=== PATIENT | female | born 1990 | race Caucasian/White ===

== ENCOUNTER 2017-08-20 20:17 | Emergency (ER) | payer OTHER ==
[~2017-08-20] VITALS: Ht 180.3 cm; Wt 70.8 kg
[2017-08-20 20:21] VITALS: Ht 180.3 cm; Wt 70.8 kg
[2017-08-20 20:52] VITALS: BP 113/52; PULSE 67; RESP 16
[2017-08-20] MEDS ORDERED: SOD CHLORIDE 0.9% 1,000 ML IV STA (21:40)
[2017-08-20] MEDS ORDERED: morphine 4 MG/ML VIAL IV STA (21:40)
[2017-08-20] MEDS ORDERED: ONDANSETRON 4 MG INJ IV STA (21:40)
[2017-08-20] MEDS ORDERED: FAMOTIDINE 20 MG INJ IV STA (21:40)
[2017-08-20] MEDS ORDERED: KETOROLAC 15 MG INJ IV STA (21:40)
--- NOTE | 2017-08-20 21:40 | ERD ---
ER Documentation Chief Complaint Chief Complaint abdominal pain/blood streak vomit x 2 days HPI This 26-year-old female presents to emergency department with complaint of ABD pain since last night reports distention,pt vomited 2 hours ago reports blood in emesis, diarrhea 2 hours ago with blood in stool , reports dark red blood, pt reports fever, states that she doesn't eat spicy food, pt has hx of ulcer was started on Protonix but stopped medication, has not seen PMD in a while , pt reports that she cant find a position of comfort. ROS All systems reviewed and are negative except as per history of present illness. Medications Home Meds Active Scripts Polyethylene Glycol* (Miralax*) 17 Gm Powd.pack, 17 GM PO DAILY, #7 Prov:KAYLA,FANI 08/21/17 Magnesium Citrate* (Magnesium Citrate*) 296 Ml Solution, 296 ML PO ONCE, #1 BOTTLE Prov:KAYLA,FANI 08/21/17 Allergies Allergies: Coded Allergies: No Known Allergy (Unverified , 08/20/17) PMhx/Soc History of Surgery: No Anesthesia Reaction: No Hx Neurological Disorder: No Hx Respiratory Disorders: No Hx Cardiac Disorders: No Hx Psychiatric Problems: No Hx Miscellaneous Medical Probl: Yes (ovarian cyst) Hx Alcohol Use: No Hx Substance Use: No Hx Tobacco Use: No Physical Exam Vitals Vital Signs Date Time Temp Pulse Resp B/P Pulse Ox O2 Delivery O2 Flow Rate FiO2 08/20/17 20:52 67 16 113/52 100 Room Air 08/20/17 20:21 98.0 94 20 128/62 100 Vitals stable, triage notes reviewed Physical Exam Const: Nourished well-appearing well-hydrated 26-year-old female obvious discomfort no acute distress Head: Eyes: Normal Conjunctiva, PERRLA, EOMI ENT: Neck: Resp: Clear to auscultation bilaterally no respiratory distress Cardio: Regular rate and rhythm, no murmurs Abd: Soft, non tender, generalized abdominal tenderness Skin: Back: No midline or flank tenderness Ext: Neur: Awake and alert Psych: Normal Mood and Affect Result Diagram: 08/20/17220408/20/172204 Results 24 hrs Laboratory Tests Test 08/20/17 21:00 08/20/17 22:05 Urine Color YELLOW Urine Clarity CLEAR Urine pH 7.0 Urine Specific [place] 1.013 Urine Ketones NEGATIVEmg/dL Urine Nitrite NEGATIVEmg/dL Urine Bilirubin NEGATIVEmg/dL Urine Urobilinogen NEGATIVEmg/dL Urine Leukocyte Esterase NEGATIVELeu/ul Urine Hemoglobin NEGATIVEmg/dL Urine Glucose NEGATIVEmg/dL Urine Total Protein NEGATIVEmg/dl White Blood Count 9.010^3/ul Red Blood Count 3.9010^6/ul Hemoglobin 12.9g/dl Hematocrit 37.4% Mean Corpuscular Volume 95.9fl Mean Corpuscular Hemoglobin 33.1pg Mean Corpuscular Hemoglobin Concent 34.5g/dl Red Cell Distribution Width 12.6% Platelet Count 70213^3/UL Mean Platelet Volume 11.4fl Neutrophils % 53.0% Lymphocytes % 33.7% Monocytes % 11.2% Eosinophils % 1.3% Basophils % 0.6% Nucleated Red Blood Cells % 0.0/100WBC Neutrophils # 4.810^3/ul Lymphocytes # 3.010^3/ul Monocytes # 1.010^3/ul Eosinophils # 0.110^3/ul Basophils # 0.110^3/ul Nucleated Red Blood Cells # 0.010^3/ul Sodium Level 138mmol/L Potassium Level 4.8mmol/L Chloride Level 103mmol/L Carbon Dioxide Level 23mmol/L Anion Gap 17 Blood Urea Nitrogen 15mg/dl Creatinine 0.70mg/dl Glucose Level 76mg/dl Calcium Level 9.3mg/dl Total Bilirubin 0.4mg/dl Direct Bilirubin 0.00mg/dl Indirect Bilirubin 0.4mg/dl Aspartate Amino Transf (AST/SGOT) 29IU/L Alanine Aminotransferase (ALT/SGPT) 24IU/L Alkaline Phosphatase 57IU/L Total Protein 7.9g/dl Albumin 4.9g/dl Globulin 3.00g/dl Albumin/Globulin Ratio 1.63 Lipase 266U/L Current Medications Medications (Trade) Dose Ordered Sig/Mike Route PRN Reason Start Time Stop Time Status Last Admin Dose Admin Sodium Chloride (NS) 1,000 ml @ 1,000 mls/hr Q1H STAT IV 08/20/17 21:40 08/20/17 22:39 DC 08/20/17 22:12 Morphine Sulfate (morphine) 4 mg ONCE STAT IV 08/20/17 21:40 08/20/17 21:44 DC 08/20/17 22:11 Ondansetron HCl (Zofran Inj) 4 mg ONCE STAT IV 08/20/17 21:40 08/20/17 21:44 DC 08/20/17 22:12 Famotidine (Pepcid Iv) 20 mg ONCE STAT IV 08/20/17 21:40 08/20/17 21:44 DC 08/20/17 22:12 Ketorolac Tromethamine (Toradol) 15 mg ONCE STAT IV 08/20/17 21:40 08/20/17 21:44 DC 08/20/17 22:12 Hydromorphone HCl (Dilaudid) 0.5 mg ONCE STAT IV 08/20/17 23:16 08/20/17 23:18 DC 08/20/17 23:27 Procedures/MDM 26-year-old female presents to emergency department for abdominal pain starting last night, patient reports abdominal distention, vomiting, she has noticed dark blood in her emesis, states she has had diarrhea starting 2 hours ago with blood in stool. She reports tactile fever, history of ulcers. Patient also reports a history of a ovarian cysts, emergency room course includes history and physical exam, exam positive for abdominal pain, pain is generalized but worse on the right side of abdomen. Diagnostic testing negative for anemia, hemorrhage, or infection, urinalysis negative for evidence of UTI, no leukocytosis, nitrates, or microscopic hematuria, electrolyte imbalance or renal insufficiency, no hepatitis. Patient's pain treated originally with Toradol IV, 4 mg of morphine, patient reports she is still having difficulty straightening her legs, 0.5 mg of Dilaudid provided, patient went to CAT scan reevaluation after returning patient reports improvement in pain symptoms, CAT scan is read by radiologist documents no acute abnormality identified within the abdomen or pelvis. Moderate retained stool within the right colon. Plan to discharge patient home with bowel regime, magnesium citrate, MiraLAX daily. Follow-up with primary care physician if symptoms fail to improve as anticipated. Patient is stable with no new complaints during ER course, clinically there is no current evidence to suggest meningitis, sepsis, acute abdomen, acute coronary syndromes, pulmonary embolism or any other emergent condition appearing to require further evaluation or hospitalization. I feel the patient is stable for discharge at this time. I have discussed results, examination findings, the treatment plan with the patient and family present prior to discharge. Indications for emergent reevaluation, side effects of medication were also discussed. All questions were answered. Patient verbalizes understanding and agrees with plan of care. Departure Diagnosis: Primary Impression: Abdominal pain Abdominal location: right lower quadrant Qualified Code: R10.31 - Right lower quadrant abdominal pain Condition: Good Patient Instructions: Constipation (Adult), Magnesium Citrate Oral solution Referrals: [facility] Additional Instructions: Thank you for for coming to [facility] for your care today. Please ask your nurse or provider if you have questions about your care today and do not leave until all your questions have been answered. Please use any medications given as directed and follow-up with your doctor (or the doctor you were referred to) in the next 2-3 days. If you do not have a primary care doctor you may follow up at the [facility] (listed below). You may also use motrin and tylenol as needed for fever and/or pain unless instructed otherwise by your provider or nurse. Indications for more urgent follow-up have been discussed, but you may return to the Emergency Department at ANY time for any worrisome or worsening symptoms. If you have abdominal pain, please know that no test or exam you received is perfect and you should follow up within 8 hours for continued pain. If you had any imaging studies today, such as an X-Ray or CT Scan, these studies will be reviewed later by a radiologist. You will be called if there are important findings that were not identified today, so make sure the contact information you provided at registration is correct. If you received any narcotic pain control medicine today, such as Vicodin, Morphine or Dilaudid, your coordination and judgment may be affected for a number of hours. Please do not drive or operate heavy machinery, and you may want someone to assist you at home. If you were given a prescription for narcotic medication, be aware that it is very addictive- use sparingly and only if necessary. FANI GARZA Aug 20, 2017 21:40
[2017-08-20 22:29] LABS: BASOPHIL # 0.1 10^3/ul (0.0-0.1); BASOPHILS % 0.6 % (0.0-2.0); EOSINOPHILS # 0.1 10^3/ul (0.0-0.5); EOSINOPHILS % 1.3 % (0.0-7.0); HEMATOCRIT 37.4 % (37.0-47.0); HEMOGLOBIN 12.9 g/dl (12.0-16.0); LYMPHOCYTES % 33.7 % (15.0-51.0); MEAN CORPUSCULAR HEMOGLOBIN 33.1 pg (29.0-33.0); MEAN CORPUSCULAR HGB CONC 34.5 g/dl (32.0-37.0); MEAN CORPUSCULAR VOLUME 95.9 fl (82.0-101.0); MEAN PLATELET VOLUME 11.4 fl (7.4-10.4); MONOCYTES % 11.2 % (0.0-11.0); NEUTROPHIL # 4.8 10^3/ul (1.6-7.5); PLATELET COUNT 252 10^3/UL (140-415); RED CELL DISTRIBUTION WIDTH 12.6 % (11.5-14.5)
[2017-08-20 22:48] LABS: ADD UMIC NO; UR ASCORBIC ACID 40 mg/dL (NEGATIVE); UR BILIRUBIN (Dip) NEGATIVE (NEGATIVE); UR BLOOD (Dip) NEGATIVE (NEGATIVE); UR CLARITY CLEAR (CLEAR); UR COLOR YELLOW (YELLOW); UR GLUCOSE (Dip) NEGATIVE (NEGATIVE); UR KETONES (Dip) NEGATIVE (NEGATIVE); UR LEUKOCYTE ESTERASE (Dip) NEGATIVE Leu/ul (NEGATIVE); UR NITRITE (Dip) NEGATIVE (NEGATIVE); UR SPECIFIC GRAVITY (Dip) 1.013 (1.003-1.030); UR TOTAL PROTEIN (Dip) NEGATIVE (NEGATIVE); UR UROBILINOGEN (Dip) NEGATIVE (NEGATIVE)
[2017-08-20 22:50] LABS: ALBUMIN 4.9 g/dl (3.3-4.9); ALBUMIN/GLOBULIN RATIO 1.63; BILIRUBIN,INDIRECT 0.4 mg/dl (0-1.1); BILIRUBIN,TOTAL 0.4 mg/dl (0.2-1.3); CALCIUM 9.3 mg/dl (8.4-10.2); CREATININE 0.7 mg/dl (0.44-1.00); POTASSIUM 4.8 mmol/L (3.5-5.1); TOTAL PROTEIN 7.9 g/dl (6.1-8.1)
[2017-08-20] MEDS ORDERED: HYDROmorphONE 0.5 MG/0.5 ML SYG IV STA (23:16)
--- NOTE | 2017-08-20 23:59 | RADRPT ---
PROCEDURE: CT Abdomen and pelvis without contrast. CLINICAL INDICATION: Abdominal pain. TECHNIQUE: CT scan of the abdomen and pelvis was performed on a multi-detector high-resolution CT scanner. Contiguous axial images were obtained from the lung bases to the ischial tuberosities wit hout intravenous contrast. Coronal and sagittal reformatted images were also obtained. Images were reviewed on the PACS workstation. One or more of the following dose reduction techniques were used: - Automated exposure control. - Adjustment of the mA and/or kV according to patient size. - Use of iterative reconstruction technique. Exam CTD/vol = 7.86 mGy. Total exam DLP = 441.36 mGy-cm. COMPARISON: 03/02/2014. FINDINGS: Evaluation of the lung bases demonstrates no pleural or parenchymal disease. Abdomen: The liver is normal in size. There is no focal mass or dilatation of the biliary tree. T he gallbladder is not distended. The spleen, pancreas and bilateral adrenal glands are within la nena l limits. Bilateral kidneys are normal in size with no contour deforming mass identified. There is no radiopaque renal or ureteral calculus identified. There is no hydronephrosis or hydroureter. T here is no retroperitoneal adenopathy. The abdominal aorta is of normal caliber. There is moderate retained stool within the colon. There is no bowel obstruction or free air. A no rmal appendix is identified. There is no diverticulosis or diverticulitis. There is no ascites. Pelvis: The bladder is unremarkable. The uterus and adnexa are within normal limits. There is no significant pelvic adenopathy or free fluid. Evaluation of the osseous structures demonstrates no suspicious lytic or blastic lesion. IMPRESSION: No acute abnormality identified within the abdomen and pelvis. Moderate retained stool within the right colon. .Moiz Esposito MD, MD Date Time Electronically viewed and signed by .Moiz Esposito MD, MD on 08/20/2017 23:58 .T/
[2017-08-21] MEDS ORDERED: MAGN296S40 PO (00:43)
[2017-08-21] MEDS ORDERED: POLY17PO6 PO (00:43)
== END 2017-08-21 00:55 | disposition home or self-care (01) ==
LOC: FTE 20:17
DX: R10.31 Right lower quadrant pain (principal); R11.10 Vomiting, unspecified
CPT/HCPCS: 74176; 80053; 81003; 83690; 85025; 96374; 96375; J1170; J1885; J2270; J2405; J7030; Z7502; Z7610

== ENCOUNTER 2018-02-19 11:00 | Emergency (ER) | END 2018-02-19 21:15 | disposition short-term general hospital (02) ==